=== PATIENT | female | born 1950 | race Caucasian/White ===

== ENCOUNTER 2024-12-15 13:05 | Outpatient (REF) | payer SELFPAY | END 2024-12-15 13:06 | disposition home or self-care (01) | LOC: HO.BBR 13:05 | PROVIDERS: Visit Provider Internal Medicine | DX: D45 Polycythemia vera (principal) | CPT/HCPCS: 85018; 99195 ==

== ENCOUNTER 2025-01-19 10:54 | Outpatient (REF) | payer MEDICARE, SELFPAY ==
--- OUTSIDE RECORDS SUMMARY | 2025-01-19 21:32 | XMS_ITS | Data Portability ---
Author Organization [place] [facility] [place] Address [address] [place] [address] Care Team Providers Care Network Communications Engineer Name Role Phone NINA WATTS Primary Care Provider NINA WATTS Primary Care Provider Assessment Encounter Date Assessment Date Assessment LastModified by Organization Details LastModified Time 01/29/2023 01/29/2023 Very pleasant 72-year-old female following up on right total hip arthroplasty by Dr. Dowell in 2014. Patient states she is doing well however she is a side sleeper and has pain on the outside of her right hip. Clinical findings suggestive of trochanteric bursitis of the right hip. She opted for a cortisone injection. After verbal consent was granted by the patient. The procedure was then carried out she tolerated this well. Aftercare instructions were discussed in detail. Follow-up visit in 6 weeks time for repeat clinical exam. Should her symptoms not improve or worsen she should contact my office. She agrees with this plan. We did discuss the current protocol regarding prophylactic antibiotics for which she can discontinue per Dr. Bunn's protocol. The caveat is if her dentist wishes to continue this they can take over management. Patient was seen and evaluated by Pavan Auguste PA-C in indirect conjuction with Documenting Provider: Linden Bunn MD . He/She agrees with history, physical examination, tests/diagnostic imaging, and treatment plan. Additional treatment plan discussed with the patient (only initiated if in boldface font) otherwise not applicable. Treatment may include the following; - Provider focused nonsteroidal anti-inflammator y regimen (discussed were the pros, cons, benefits and risks as well as any black box warnings) in patients over 60 years old they should be very cautious in taking these medications due to potential decreased kidney function and or elevated blood pressure. - Analgesic pain medication for pain suppression (discussed were the pros, cons, benefits and risks as well as any black box warnings) - The use of topical pain relieving medication were discussed - The use of ice to decrease inflammation and pain - The use of assistive ambulatory devices for ambulation and fall prevention - Formal specific guided physical therapy program I reviewed my findings at length with the patient today. We discussed the nature and etiology of this problem along with current treatment options. We discussed the expected course and outcomes and what to expect. We also discussed risks and benefits. All of their questions were answered today, and there was exhibited understanding and comprehension of all that was discussed. Time Spent: 10 minutes were spent reviewing previous imaging and charting. 10 minutes were spent obtaining patient history. 5 minutes were spent on physical exam. 5minutes were spent explaining diagnosis and assessment. Today's documentation was made using voice recognition software. This note may contain grammatical errors secondary to the software. Not available 01/29/2023 14:28:36 Plan of Treatment Reminders Order Date Submit Date Provider Last Modified By Organization Details Last Modified Time Details Appointments None recorded. Lab None recorded. Referral None recorded. Procedures None recorded. Surgeries None recorded. Imaging XR, hip, unilateral, 2 or 3 view 2022 023 [facility], [address], [address], [place], [address], 14:33:11 Medication Orders Kenalog 40 mg/mL suspension for injection 2022 023 Not available 14:33:11 lidocaine (PF) 10 mg/mL (1 %) injection solution 2022 023 Not available 14:33:11 Patient TargetsNo targets recorded. Patient Instructions Encounter Date Encounter Id Patient Instructions Last Modified By Organization Details Last Modified Time 01/29/2023 [id number] You have been provided with a cortisone injection in order to reduce the pain and inflammation that you are experiencing. The injection consists of two medications. Cortisone (an anti-inflammatory that will take 48-72 hours to take effect) and Lidocaine (a numbing agent that will last 2-3 hours). Please note that not everyone will have a lasting response following the injection. PATIENT INSTRUCTIONS Once the Lidocaine wears off, you may have an increase in your pain. I recommend icing the affected area for 20 minutes 3-4 times per day. It is recommended that you refrain from any high level activities using the joint or limb that was injected for approximately 24-48 hours. Normal day-to-day activities are generally not a problem. POSSIBLE SIDE EFFECTS Individuals with dark complexions may experience some skin discoloration locally at the site of the injection. There is the possibility of an increase in discomfort within 48 hours following the injection. This is called lashonda montero . To help minimize the chances of this, please see the post-injection instructions above. There is a less than 1% chance of an infection. If you notice any signs of infection (redness, warmth, drainage, fever greater than 100 degrees) please call our office or contact us through the portal CLA[facility]DE. Not available 01/29/2023 14:28:48 X-rays of the right hip reveal well-seated well-positioned total hip arthroplasty without sign of loosening. No acute bony abnormality. Not available 01/29/2023 14:25:38 Reason for Referral None Reported. Problems Name Problem SNOMED Code Status Onset Date Resolution Date Notes Provider Name and Address Organization Details Recorded Time History of total replaceme nt of right hip joint 68645803734 4100 Active 2016 History of total right hip arthropla sty Not Available [facility] 5 00:15:15 Stiffness of joint of right hip 37364558672 9102 Active 2017 Hip stiffness , right Not Available [facility] 5 00:15:14 Problem Notes None recorded. Procedures Surgical History Date Name Laterality Status Provider Name and Address Organization Details Recorded Time 3 JANNET Troch Bursa Inj completed PAVAN AUGUSTE PA-C [address] [place] [address],[address], [place], [address], [place] [facility] [place] [facility] 01/29/2023 14:26:45 ligation of fallopian tube completed Krissy Knott [place] [facility] [place] [facility] 01/29/2023 11:27:22 total replacement of left hip joint completed [facility] [place] [facility] [place] 01/29/2023 11:27:52 total replacement of right hip joint completed [facility] [place] [facility] [place] [facility] 01/29/2023 11:28:10 Imaging Results None recorded. Procedure Notes None recorded. Medical Equipment None Reported. Allergies No known drug allergies Medications Name Sig Start Date Stop Date Status Note LastModified by Organization Details LastModified Time atorvastati n 40 mg tablet TAKE 1 TABLET BY MOUTH EVERY DAY active Not Available Not Available No t Available atenolol 25 mg tablet 2016 active Not Available Not Available Not Avai lable amoxicillin 500 mg tablet Take 4 tabs 1 hour prior to dental appointme ntt 2021 active Not Available Not Available Not Avai lable Kenalog 40 mg/mL suspension for injection Take 1 mL by injection route. 2022 active Not Available Not Available Not Avai lable lisinopril 10 mg tablet TAKE 1 TABLET BY MOUTH EVERY MORNING active Not Available Not Available No t Available azelastine 137 mcg (0.1 %) nasal spray SPRAY 1 SPRAY INTO EACH NOSTRIL TWICE A DAY FOR 30 DAYS NEEDED FOR ALLERGIES active Not Available Not Available No t Available fluticasone propionate 50 mcg/actuati on nasal spray,suspe nsion SPRAY 1 SPRAY INTO EACH NOSTRIL TWICE A DAY active Not Available Not Available No t Available Flovent HFA 220 mcg/actuati on aerosol inhaler 2016 active Not Available Not Available Not Avai lable multivitami n active Not Available Not Available Not Available lidocaine (PF) 10 mg/mL (1 %) injection solution Take 2 mL by injection route. 2022 active Not Available Not Available Not Avai lable ProAir HFA 90 mcg/actuati on aerosol inhaler inhale 2 puffs by mouth four times a day if needed for shortness of breath 2016 active Not Available Not Available Not Avai lable GaviLyte-N 420 gram oral solution take by mouth as directed 2016 active Not Available Not Available Not Avai lable azelastine 205.5 mcg (0.15 %) nasal spray USE 1 SPRAY IN EACH NOSTRIL TWICE DAILY NEEDED FOR ALLERGY SYMPTOMS active Not Available Not Available No t Available Wixela Inhub 250 mcg-50 mcg/dose powder for inhalation INHALE 1 PUFF BY MOUTH TWICE A DAY FOR 30 DAYS. RINSE MOUTH AND THROAT AFTER USE active Not Available Not Available No t Available BinaxNOW COVID-19 Ag Self Test kit FOLLOW INSTRUCTI ONS BY MANUFA[employer] RS PACKAGE 01/29 completed Not Available Not Available Not Available Vitals Date Recorded Body height Body mass index (BMI) Body weight Provider Name and Address Organization Details Last Updated DateTime 01/29/2023 162.56 cm 29.9 kg/m2 [address] [facility] [place] [facility] [place], 01/29/2023 11:26:16 Social History None recorded. Functional Status Question Answer Note LastModified by Organizat ion Details LastModified Time How many times per week do you consume alcohol? 1-2 times per week Information not available 01/29/2023 Do you use any illicit or recreational drugs? No Information not available 01/29/2023 Do you or have you ever used any other forms of tobacco or nicotine? No Information not available 01/29/2023 What is your level of alcohol consumption? Occasional Information not available 01/29/2023 Mental Status None recorded. Family History Relationship Description Onset Age of this Age Resolved Age Notes LastModified by Organization Details LastModified Time Mother Family history of malignant neoplasm Not available 2022 11:27:06 Father Aneurysm Not available 01/29/2023 11:27:13 Medical History Condition Response Asthma Y Hypertension Y Gynecological HistoryNo gynecological history recorded. Obstetrics History GPAL:G 0 P 0 0 0 0 Past Encounters Encounter ID Performer Location Encounter Start Date Encounter Closed Date Diagnosis/Indication Diagnosis SNOMED-CT Code Diagnosis ICD10 Code Diagnosis IMO Codes Diagnosis Note [id number] [address] [facility] [address] [facility] [address] 01/29/2023 10:53:22 01/29/2023 11:52:51 History of total replacement of right hip joint [id number] 42194 Z96.641 Trochanter ic bursitis of right hip 0068184085 67193 M70.61 Health Concerns Section Related Observation LastModified by Organization Detai ls LastModified Time None Recorded Concern Status LastModified by Organization Details LastModified Time None Recorded Advance Directives Directive None Recorded Payers Insurance Date Sequence Insurance Name Policy Number Policy Browning Covered Member ID Browning Member ID Guarantor Name 01/28/2023 1 [facility] Milli Lakhani [id number] Milli Aguiarkajalnayeli Notes Date Note Type Note Provider Name and Address Organization Details Recorded Time 01/29/2023 text/html Very pleasant 72-year-old female following up on right total hip arthroplasty by Dr. Dowell in 2014. Patient states she is doing well however she is a side sleeper and has pain on the outside of her right hip. States she does her stretching exercises. No other complaints at this time. She had her left hip replaced at [facility] in 2012 no issues. X-rays of the right hip reveal well-seated well-positioned total hip arthroplasty without sign of loosening. No acute bony abnormality. PAVAN AUGUSTE PA-C [address] [place] [address],[place] [address], [place], [address], [place] [facility] [place] 01/29/2023 14:29:30 OBGyn Episode No OBEpisode recorded.
--- OUTSIDE RECORDS SUMMARY | 2025-01-19 21:32 | XMS_ITS | Clinical Summary ---
Author Organization [facility] Address [address] [place] [address] Phone Care Team Providers Care Salicylic Acid Blender Name Role Phone Pepito Gutiérrez DO Primary Care Provider Allergies No known active allergies Medications lisinopril (PRINIVIL,ZESTRI L) 20 MG tablet Take 20 mg by mouth every morning. 04/21/2022 Active fluticasone propion-salmeter oL (ADVAIR DISKUS) 250-50 mcg/dose DISKUS Inhale 1 puff into the lungs 2 (two) times a day. 05/17/2022 Active atorvastatin (LIPITOR) 40 MG tablet Take 40 mg by mouth daily. 03/09/2022 Active albuterol 90 mcg/actuation inhaler daily as needed. Active azelastine (ASTELIN) 137 mcg (0.1 %) nasal spray 2 sprays by Nasal route 2 (two) times a day. 05/17/2023 Active amLODIPine (NORVASC) 2.5 MG tablet Take 2.5 mg by mouth daily. Active Active Problems Problem Noted Date Diagnosed Date Thyroid nodule 05/28/2022 Overview (05/29/2023): s/p FNA x 2012, initial FLUS, 2nd inadequate, 3rd benign - reviewed with Dr. Ragland - michael anna, [facility] - stable u/s 2021 Assessment & Plan (05/28/2024 10:38 AM EDT): 74 yo woman w/ solitary thyroid nodule. s/p FNA x 3, 2012, initial FLUS, 2nd inadequate, 3rd benign - reviewed with Dr. Ragland - michael colloid, [facility]. Stable u/s 2021. Has been euthyroid. Has TSH included in labs for PCP. No compressive symptoms. Exam unrevealing. Ultrasound scheduled for this afternoon. To call if doesn't hear from me w/ results within 1-2 weeks. If stable, will likely monitor exam & defer further ultrasounds unless exam changes. Assessment & Plan (05/29/2023 10:58 AM EDT): Has been euthyroid. Will check labs when has upcoming labs for PCP. No compressive symptoms. Exam unrevealing. Ultrasound stable in 2021. Will repeat ultrasound prior to follow up. Assessment & Plan (05/28/2022 2:36 PM EDT): Has been euthyroid. Will check labs when has upcoming labs for PCP. No compressive symptoms. Exam unrevealing. Will repeat ultrasound at [facility] for comparison to previous. To contact me if hasn't heard @ results within 1-2 weeks. Family History Medical History Relation Comments Lupus Daughter Aneurysm Father COPD Mother Cancer Mother lung Thyroid disease Neg Hx Relation Status Comments Daughter Father Mother Social History Tobacco Use Types Packs/Day Years Used Date Smoking Tobacco: Never Smokeless Tobacco: Never Tobacco Cessation:Counseling Given: Not Answered Alcohol Use Standard Drinks/Week Comments Yes 0 (1 standard drink = 0.6 oz pur e alcohol) social Education Answer Date Recorded Are you interested in more education? Not on cain e 06/29/2022 Are you concerned about learning? Not on file 06/29/2022 No 06/29/2022 No 06/29/2022 Digital Access Answer Date Recorded No 07/30/2022 No 07/30/2022 Reliable internet access at home? Not on file 07/30/2022 Device with a working camera? Not on file Comments Unknown Sex and Gender Information Value Date Recorded Sex Assigned at Not on file Legal Sex Female 1:17 PM EDT Gender Identity Not on file Sexual Orientation Not on file Last Filed Vital Signs Vital Sign Reading Time Taken Comments Blood Pressure 142/82 05/28/2024 9:59 AM EDT Pulse 89 05/28/2024 9:59 AM EDT Temperature - - Respiratory Rate - - Oxygen Saturation 96% 05/28/2024 9:59 AM EDT Inhaled Oxygen Concentration - - Weight 77.7 kg (171 lb 3.2 oz) 05/28/2024 9:59 A M EDT Height 164.5 cm (5' 4.76 ) 05/28/2024 9:59 AM ED T Body Mass Index 28.7 05/28/2024 9:59 AM EDT Plan of Treatment Upcoming Encounters Date Type Department Care Team (Late st Contact Info) Description 05/18/2025 12:00 PM EDT Office Visit [facility] [address] [place] [id number] Janine Hawley MD [address] [place] [address] [email or web address] Health Maintenance Due Date Last Done Comments Adult Td,Tdap Booster 1949 CREATININE LEVEL 1949 LIPID PANEL 1949 POTASSIUM LEVEL 1949 DEPRESSION SCREENING 1961 HEPATITIS C SCREENING 1967 COLOGUARD 1994 COLONOSCOPY 1994 COLORECTAL CANCER SCREENING 1994 FIT TEST 1994 FOBT 1994 SIGMOIDOSCOPY 1994 VIRTUAL COLONOSCOPY 1994 OSTEOPOROSIS SCREENING INITIAL (ONE-TIME) 2014 RSV VACCINE (1 - 1-dose 75+ series) 2024 INFLUENZA VACCINE (#1) 2024 , 11/17/2019, 11/06/2017, Additional history exists COVID-19 VACCINE (2024- season) 2024 06/29/2021, 12/20/2020, 06/09/2020, Additional history exists PNEUMOCOCCAL VACCINES (50+ years) Completed 11/06/2017, 12/22/2014, 12/05/2010 ZOSTER VACCINES Completed 06/11/2021, 03/04, 02/29/2016 SMOKING STATUS SCREENING (Once After 26 Yrs) Completed 05/28/2024 HEPATITIS A VACCINES Aged Out No long er eligible based on patient's age to complete this topic HIB VACCINES Aged Out No longer eligi ble based on patient's age to complete this topic IPV VACCINES Aged Out No longer eligi ble based on patient's age to complete this topic MENINGOCOCCAL VACCINES (ACWY) Aged Out No longer eligible based on patient's age to complete this topic MENINGOCOCCAL VACCINES (B) Aged Out N o longer eligible based on patient's age to complete this topic Medical Devices Not on file Insurance [employer] Care Teams Salicylic Acid Blender Relationship Specialty Start Date End Date Pepito Gutiérrez DO [address] [facility] [place] [address] PCP - General Family Medicine 05/29/23 Additional Source Comments The information contained in this document represents components of the legal health record. It is not the complete legal health record.[facility]
--- OUTSIDE RECORDS SUMMARY | 2025-01-19 21:32 | XMS_ITS | Clinical Summary ---
Author Organization [facility] Address [address] [place] [phone] Phone Care Team Providers Care Grain Receiver Name Role Phone Raphael Membreno MD Primary Care Provider [phone] Allergies Active Allergy Reactions Criticality Noted Date Comments Adhesive Rash 10/28/2024 Medications atorvastatin (LIPITOR) 40 mg tablet Take 1 tablet (40 mg total) by mouth 1 (one) time each day. Active fluticasone propionate (FLONASE) 50 mcg/actuation nasal spray Administer 1 spray into each nostril 2 (two) times a day. 5 Active lisinopriL (PRINIVIL,ZESTR IL) 20 mg tablet Take 1 tablet (20 mg total) by mouth 1 (one) time each day. 5 Active fluticasone-breanna meterol (ADVAIR DISKUS) 250-50 mcg/dose diskus inhaler 2 (two) times a day. 1 Active albuterol HFA (ProAir HFA) 90 mcg/actuation inhaler inhale 2 puffs by mouth four times a day if needed for shortness of breath 7 Active Active Problems Problem Noted Date Diagnosed Date Benign essential hypertension 09/02/2024 Heart murmur 09/02/2024 HTN (hypertension) 09/02/2024 Thyroid nodule 05/28/2022 Overview (09/02/2024): s/p FNA x 3, 2013, initial FLUS, 2nd inadequate, 3rd benign - reviewed with Dr. Obie anna, BFCs - stable u/s 2021 Encounters Date Type Department Care Team Description 11/24/2024 10:15 AM EDT Office Visit [facility] Hematology Oncology [address] [place] [id number] Stephanie Licea DO Polycythemia vera (CMS/HCC V24, CMS/HCC V28) (Primary Dx); JAK2 gene mutation 10/28/2024 9:06 AM EDT - 10/28/2024 11:59 PM EDT Hospital Encounter [facility] Interventional Radiology [address] [place] [phone] Polycythemia Discharge Disposition: Home or Self Care 10/27/2024 Telephone [facility] Hematology Oncology [address] [place] [phone] Stephanie Licea DO from Last 3 Months Surgical History Surgery Date Site/Laterality Comments JOINT REPLACEMENT PROCEDURE:JOINT REPLACEMENT TUBAL LIGATION PROCEDURE:TUBAL LIGATION TONSILLECTOMY ADENOIDECTOMY, BILATERAL MYRINGOTOMY AND TUBES PROCEDURE:TONSILECTOMY, ADENOIDECTOMY, BILATERAL MYRINGOTOMY AND TUBES Medical History Medical History Date Comments Hypertension DX:Hypertension Anxiety DX:Anxiety Heart murmur DX:Heart murmur Asthma DX:Asthma Family History Medical History Relation Name Comments Cancer Mother Relation Name Status Comments Mother Social History Tobacco Use Types Packs/Day Years Used Date Smoking Tobacco: Never Tobacco Cessation:Counseling Given: Not Answered Alcohol Use Standard Drinks/Week Comments Yes 0 (1 standard drink = 0.6 oz pur e alcohol) Comments Unknown Sex and Gender Information Value Date Recorded Sex Assigned at Female 07/20/2024 5:04 PM EDT Legal Sex Female 6:44 PM EST Gender Identity Female 07/20/2024 5:04 PM EDT Sexual Orientation Straight 07/20/2024 5: 04 PM EDT Obstetrics History Last Filed Vital Signs Vital Sign Reading Time Taken Comments Blood Pressure 180/84 11/24/2024 10:50 AM EDT Pulse 90 11/24/2024 10:50 AM EDT Temperature 36.3 C (97.4 F) 11/24/2024 10:14 AM EDT Respiratory Rate 14 10/28/2024 9:47 AM EDT Oxygen Saturation 94% 11/24/2024 10:14 AM EDT Inhaled Oxygen Concentration - - Weight 78 kg (172 lb) 11/24/2024 10:14 AM EDT Height 166 cm (5' 5.35 ) 11/24/2024 10:14 AM EDT Body Mass Index 28.32 11/24/2024 10:14 AM EDT Plan of Treatment Upcoming Encounters Date Type Department Care Team (Late st Contact Info) Description 02/10/2025 10:00 AM EST Office Visit [facility] Hematology Oncology [address] [place] [phone] Stephanie Licea DO [address] [place] [address] Health Maintenance Due Date Last Done Comments Colorectal Cancer Screening: Colonoscopy 1950 DTaP,Tdap,and Td Vaccines (2 - Tdap) 12/05/2020 12/05/2010 Cholesterol Screening (Lipid Panel) 02/08/2022 Falls Risk Assessment 02/08/2022 Hepatitis C Screening 02/08/2022 Medicare Annual Wellness Visit 02/08/2022 Osteoporosis Screening (Bone Density Screening) 02/08/2022 Social Influencers of Health Screening 02/08/2022 Depression Screening 03/03/2024 Hypertension/CHF/CAD Annual BMP Blood Test 09/02/2024 COVID-19 Vaccine ( season) 2024 12/02/2023, 12/30/2022, 06/29/2021, Additional history exists Influenza Vaccine (#1) 2024 , 12/03/2022, 12/05/2021, Additional history exists Pneumococcal Vaccine: 50+ Years Completed 11/06/2017, 12/22/2014, 12/05/2010 Zoster Vaccines Completed 06/11/2021, 03/04, 02/29/2016 RSV Immunization Adult Patients Completed 01/14/2023 HIB Vaccines Aged Out No longer eligi ble based on patient's age to complete this topic HPV Vaccines Aged Out No longer eligi ble based on patient's age to complete this topic Hepatitis A Vaccines Aged Out No long er eligible based on patient's age to complete this topic Hepatitis B Vaccines Aged Out No long er eligible based on patient's age to complete this topic IPV Vaccines Aged Out No longer eligi ble based on patient's age to complete this topic MMR Vaccines Aged Out No longer eligi ble based on patient's age to complete this topic Meningococcal ACWY Vaccine Aged Out N o longer eligible based on patient's age to complete this topic Meningococcal B Vaccine Aged Out No l onger eligible based on patient's age to complete this topic RSV Immunization Patients Under 20 months Aged Out No longer eligible based on patient's age to complete this topic Varicella Vaccines Aged Out No longer eligible based on patient's age to complete this topic Procedures Procedure Name Priority Date/Time Associated Diagnosis Comments CBC WITH AUTO DIFFERENTIAL Routine 11/24/2024 10:55 AM EDT JAK2 gene mutation Polycythemia vera ([facility] V24, [facility] V28) CBC AND DIFFERENTIAL Routine 11/24/2024 10:55 AM EDT JAK2 gene mutation Polycythemia vera ([facility] V24, [facility] V28) BONE MARROW EXAM Routine 10/28/2024 11:0 2 AM EDT Polycythemia CYTOGENETICS MISCELLANEOUS Routine 10/28/2024 11:02 AM EDT Polycythemia FLOW CYTOMETRY Routine 10/28/2024 11:02 AM EDT Polycythemia IR BX AND ASP BONE MARROW Routine 10/28/2024 11:01 AM EDT Polycythemia from Last 3 Months Results * (ABNORMAL) CBC auto differential (11/24/2024 10:55 AM EDT) [facility] Signature WBC 8.3 4.8 - 10.8 K/mcL LAB HEMETOLOGY METHOD 11/24/2024 11:58 AM EDT [facility] RBC 5.50(H) 3.80 - 4.80 M/mcL LAB HEMETOLOGY METHOD 11/24/2024 11:58 AM [facility] Hemoglobin 17.5(H) 11.5 - 16.0 g/dL LAB HEMETOLOGY METHOD 11/24/2024 11:58 AM [facility] Hematocrit 51.8(H) 35.0 - 47.0 % LAB HEMETOLOGY METHOD 11/24/2024 11:58 AM [facility] MCV 94.4 79.0 - 98.0 FL LAB HEMETOLOGY METHOD 11/24/2024 11:58 AM [facility] MCH 31.9 27.0 - 32.0 pcg LAB HEMETOLOGY METHOD 11/24/2024 11:58 AM [facility] MCHC 33.8 32.0 - 37.0 g/dL LAB HEMETOLOGY METHOD 11/24/2024 11:58 AM [facility] RDW 14.5 11.0 - 15.0 % LAB HEMETOLOGY METHOD 11/24/2024 11:58 AM [facility] Platelets 324 130 - 400 K/mcL LAB HEMETOLOGY METHOD 11/24/2024 11:58 AM [facility] MPV 9.2 7.0 - 11.0 FL LAB HEMETOLOGY METHOD 11/24/2024 11:58 AM [facility] NRBC 0.0 <1.0 % LAB HEMETOLOGY METHOD 11/24/2024 11:58 AM [facility] NRBC Absolute 0.00 <0.10 K/mcL LAB HEMETOLOGY METHOD 11/24/2024 11:58 AM [facility] Neutrophils Relative 65.9 % LAB HEMETOLOGY METHOD 11/24/2024 11:58 AM [facility] Lymphocytes Relative 17.5 % LAB HEMETOLOGY METHOD 11/24/2024 11:58 AM EDT [facility] Monocytes Relative 10.6 % LAB HEMETOLOGY METHOD 11/24/2024 11:58 AM EDT [facility] Eosinophils Relative 4.9 % LAB HEMETOLOGY METHOD 11/24/2024 11:58 AM [facility] Basophils Relative 0.6 % LAB HEMETOLOGY METHOD 11/24/2024 11:58 AM EDT [facility] Immature Granulocytes Relative 0.5 % LAB HEMETOLOGY METHOD [facility] Neutrophils Absolute 5.50 1.50 - 7.00 K/mcL LAB HEMETOLOGY METHOD 11/24/2024 11:58 AM [facility] Lymphocytes Absolute 1.46 1.00 - 5.00 K/mcL LAB HEMETOLOGY METHOD 11/24/2024 11:58 AM [facility] Monocytes Absolute 0.88 0.20 - 1.00 K/mcL LAB HEMETOLOGY METHOD 11/24/2024 11:58 AM [facility] Eosinophils Absolute 0.41 0.00 - 0.50 K/mcL LAB HEMETOLOGY METHOD 11/24/2024 11:58 AM [facility] Basophils Absolute 0.05 0.00 - 0.20 K/mcL LAB HEMETOLOGY METHOD 11/24/2024 11:58 AM [facility] Immature Granulocytes Absolute 0.04(H) 0.00 - 0.03 K/mcL LAB HEMETOLOGY METHOD 11/24/2024 11:58 AM [facility] Blood Venous blood specimen / Unknown Venipuncture / Unknown 11/24/2024 10:55 AM EDT 11/24/2024 11:36 AM EDT us Stephanie Licea DO LAB BLOOD ORDERABLES Final Result [facility] ([facility]) [facility] [address] [place] [address], * Cytogentic Miscellaneous (10/28/2024 11:02 AM EDT) Scan Result See Scanned Result 11/08/2024 9:49 AM EDT EXTERNAL LAB (NON-INTERFAC ED) Bone Marrow Specimen from bone marrow obtained by aspiration / Unknown 10/28/2024 11:02 AM EDT 10/28/2024 11:18 AM EDT us Horace Vasquez MD LAB CYTOGENETICS ORDERABLES Dhara malcolm Result EXTERNAL LAB (NON-INTERFACED) * Flow cytometry (10/28/2024 11:02 AM EDT) Flow Cytometry Interpretation Bone marrow, Flow cytometry: - No monotypic B cell population identified. - Most of the lymphocytes are CD3-positive T cells including CD4-positive and CD8-positive subsets without diagnostic phenotypic aberrancy. - There is no increase in the proportion of [id number] blasts (0.4-0.5%). Note: No monotypic B cell population is identified. Most of the lymphocytes are T cells and NK cells without diagnostic phenotypic aberrancy. A small population of normal immature B-cell precursors (hematogones) is identified. The findings do not support a diagnosis of a lymphoproliferative disorder. HQ34-[id number] blasts do not appear increased. It is noted that a high proportion of the granulocytes shows expression of CD10, raising the possibility of a hemodilution. Correlation with the morphologic findings in the accompanying bone marrow biopsy and aspirate specimen is recommended. See separate report, [id number], for additional information. Please note that myeloid disorders cannot be reliably excluded by flow cytometry. SPECIMEN: Bone marrow ([id number]) VIABILITY: 91.7% TOTAL CELL YIELD: 16.1 x106/mL IMMUNOPHENOTYPIC FINDINGS: Lymphocytes are 14.2% of total. - T cells are 9.1% of total (62.8% of cells in lymphocyte gate) with no aberrant phenotype, CD4:CD8= 5.1. - B cells are 2.5% of total (17.5% of cells in lymphocyte gate) and are polytypic (kappa:lambda ratio = 1.5). The B cells show no significant expression of CD5, CD10, or CD38 and show no overexpression of CD200. - NK cells are 2.4% of total (17.2% of cells in lymphocyte gate) and show expression of CD56. Most of the NK cells (greater than 80%) showed pression of CD2, CD7, and CD16. - Plasma cells are 0.2 of total and are show weak expression of CD19 and CD45. - Granulocytes are 73.7% of total and show generally production inspector immunophenotypic maturation. A high proportion of the granulocytes shows expression of CD10, raising the possibility of hemodilution. - Monocytic cells are 7.1% of total and show generally production inspector immunophenotypic maturation. - CD45 dim cells are 2.3% of total. CD34+ blasts are not increased (approximately 0.4-0.5%). Antibodies (27 markers): CD2, CD3, CD4, CD5, CD7, CD8, CD10, CD11b, CD13, CD14, CD15, CD16, CD19, CD20, CD33, CD34, CD38, CD45, CD56, CD64, CD117, CD123, CD200, HLA-DR, Ackerly, Lambda, TCR??. 10/29/2024 12:[address] [facility] Disclaimer This test was developed and its performance characteristics determined by [facility]. It has not been cleared or approved by U.S. Food and Drug Administration. The FDA does not require this test to go through premarket FDA review. This test is used for clinical purposes. It should not be regarded as investigational or for research. This laboratory is certified under Clinical Laboratory Improvement Amendments of 1988 (CLIA) as qualified to perform high complexity clinical laboratory testing. 10/29/2024 12:[address] [facility] Bone Marrow Specimen from bone marrow obtained by aspiration / Unknown 10/28/2024 11:02 AM EDT 10/28/2024 11:18 AM EDT us Horace Vasquez MD LAB BLOOD ORDERABLES Final Resul t [facility] ([facility] [address] [place] [address], * Bone marrow exam (10/28/2024 11:02 AM EDT) Cytogenetics Report, Addendum This case was sent to [facility], [address] [place], [place], (CLIA #[id number]) for Cytogenetic studies. Their diagnosis is as follows: Cytogenetics Oncology Chromosome Analysis Karyotype: 46,XX[20] Interpretation: NORMAL FEMALE KARYOTYPE Cytogenetic analysis shows a normal female karyotype in all cells analyzed. Comments: Standard cytogenetic analysis may not detect subtle submicroscopic rearrangements and may not include metaphases from abnormal cell populations with low mitotic rates or present in low levels. Test Detail: Metaphases Counted: 20 Metaphases Analyzed: 20 Metaphases Karyotyped: 2 Culture Type: 24EB, 48EB Banding Technique: GTG Banding Resolution: 400 Electronic Signature Electronic Signature Abraham Gonzalez, Ph.D., [facility] - Effie Colon M.D., Hematopathologist - [facility] Lab Report Date: 11/05/2024 03:29:59 PM ET (See scanned copy for full report) 4:13 PM EDT [facility] Addendum electronically signed by Abraham Mejia MD on 11/05/2024 at 4:13 PM Final Diagnosis Bone Marrow, aspiration, core biopsy, and clot: - Normocellular to mildly hypercellular bone marrow for patient age (estimated at 40% overall cellularity in areas of intact bone marrow) with maturing myeloid and erythroid precursors, a normal myeloid:erythroid ratio, adequate numbers of megakaryocytes including abnormal hypersegmented and hyperchromatic forms and occasional small clusters of megakaryocytes, and 1.75% blasts in a 400-cell aspirate differential. (See note.) Note: This is a cellular bone marrow with trilineage hematopoiesis. Assessment of cellularity is difficult but based on intact areas of the bone marrow, the cellularity is estimated to be 40%. There is a normal myeloid:erythroid ratio (2.1:1). Reticulin staining shows a mild increase in reticulin-stained fibers (MF-1). Storage iron is present and pathologic ring sideroblasts are not identified. Immunophenotyping studies were performed. Flow cytometry shows no monotypic B-cell population and no aberrant T-cell population. No increase in the proportion of CD34 positive blast was identified. This is a patient with elevated hemoglobin (17.1 g/dL) and hematocrit (52.3%), and peripheral blood molecular studies showing the presence of a JAK2 V617F (reported as 37.3%). Megakaryocytes include abnormal hyperchromatic and hypersegmented forms, and there are small clusters of megakaryocytes identified. Although the combination of morphologic and molecular findings are compatible with a diagnosis of a myeloproliferative neoplasm, precise classification is difficult. The marrow in this specimen appears normocellular to mildly hypercellular, the M:E ratio is normal, and there is adequate storage iron. These morphologic features are not characteristic of polycythemia vera which is typically hypercellular, has an increase in erythroid precursors and often has absence of storage iron. However, given the high hemoglobin and hematocrit, this process may represent an early or prodromal form of polycythemia vera. Correlation with clinical and other laboratory findings is recommended. Karyotype is pending, addendum to follow. CBC (09/02/2024): WBC 7.8 k/uL, Hemoglobin 17.1 g/dL, Hematocrit 52.3%, MCV 95.6 fL, RDW 15.8%, Platelets 326 k/uL. Differential: Neutrophils: 65.3%, Lymphs: 17.5%, Monos: 9.9%, Eos: 5.9%, Basos: 0.9%, Immature granulocytes: 0.5%. Bone marrow aspirate smear (Boyce stain): Specimen quality: Adequate for evaluation with abundant cellular marrow particles and adequate staining properties. Myeloid:Erythroid ratio: 2.1 (normal) Myeloid maturation: A complete range of generally production inspector myeloid maturation is present. Eosinophils are focally increased. Few myeloid precursors show cytoplasmic vacuoles. Erythroid maturation: A complete range of generally production inspector erythroid maturation is present. Megakaryocyte number and morphology: Megakaryocytes are adequate in number. Occasional small, hypolobated megakaryocytes are present. Rare megakaryocytes exhibit emperipolesis. Iron stain: Adequate storage iron is present (3+/6). Pathologic ring sideroblasts are not identified. 400 cell Differential count of aspirate: 1.75% Blasts 0.25% Promyelocytes 13.5% Myelocytes/metamyeloc ytes 38.75% Neutrophils/bands 2.0% Monocytes 4.25% Eosinophils 0.0% Basophils 9.75% Lymphocytes 2.0% Plasma cells 27.25% Erythroid precursors Microscopic finding of bone marrow biopsy and clot (H&E, PAS and Reticulin): Specimen quality: -Core: Suboptimal (approximately 8-9 mm of intact marrow space); much of the marrow appears fragmented and crushed with artifactually empty areas. -Clot: Predominantly blood with scant marrow elements and a fragment of adipose tissue. Cellularity: Estimated at 40% in areas that are relatively intact (normocellular to mildly hypercellular for patient age). Myeloid maturation: Maturing myeloid elements are present. Erythroid maturation: Maturing erythroid elements are present. Megakaryocyte number and maturation: Scattered megakaryocytes are present including rare large megakaryocytes. Rare small clusters of three or more megakaryocytes and occasional megakaryocytes with increased nuclear:cytoplasmic ratio and hyperchromasia are noted. Plasma cells: Occasional plasma cells are identified; no expansile aggregates of plasma cells are seen. Lymphocytes: No discrete lymphoid aggregates are identified. Reticulin stain: Patchy increase in reticulin-stained fibers, including occasional thickened reticulin fibers (MF-1). Other findings: PAS Stain highlights megakaryocytes. Flow Cytometry (case [id number]) - No monotypic B cell population identified. - Most of the lymphocytes are CD3-positive T cells including CD4-positive and CD8-positive subsets without diagnostic phenotypic aberrancy. - There is no increase in the proportion of XB76-vwivqxuj blasts (0.4-0.5%). Note: No monotypic B cell population is identified. Most of the lymphocytes are T cells and NK cells without diagnostic phenotypic aberrancy. A small population of normal immature B-cell precursors (hematogones) is identified. The findings do not support a diagnosis of a lymphoproliferative disorder. LZ92-[id number] blasts do not appear increased. It is noted that a high proportion of the granulocytes shows expression of CD10, raising the possibility of a hemodilution. Please note that myeloid disorders cannot be reliably excluded by flow cytometry. SPECIMEN: Bone marrow VIABILITY: 91.7% TOTAL CELL YIELD: 16.1 x106/mL IMMUNOPHENOTYPIC FINDINGS: Lymphocytes are 14.2% of total. - T cells are 9.1% of total (62.8% of cells in lymphocyte gate) with no aberrant phenotype, CD4:CD8= 5.1. - B cells are 2.5% of total (17.5% of cells in lymphocyte gate) and are polytypic (kappa:lambda ratio = 1.5). The B cells show no significant expression of CD5, CD10, or CD38 and show no overexpression of CD200. - NK cells are 2.4% of total (17.2% of cells in lymphocyte gate) and show expression of CD56. Most of the NK cells (greater than 80%) showed pression of CD2, CD7, and CD16. - Plasma cells are 0.2 of total and are show weak expression of CD19 and CD45. - Granulocytes are 73.7% of total and show generally production inspector immunophenotypic maturation. A high proportion of the granulocytes shows expression of CD10, raising the possibility of hemodilution. - Monocytic cells are 7.1% of total and show generally production inspector immunophenotypic maturation. - CD45 dim cells are 2.3% of total. CD34+ blasts are not increased (approximately 0.4-0.5%). Antibodies (27 markers): CD2, CD3, CD4, CD5, CD7, CD8, CD10, CD11b, CD13, CD14, CD15, CD16, CD19, CD20, CD33, CD34, CD38, CD45, CD56, CD64, CD117, CD123, CD200, HLA-DR, Ackerly, Lambda, TCR??. This test was developed and its performance characteristics determined by [facility]. It has not been cleared or approved by U.S. Food and Drug Administration. The FDA does not require this test to go through premarket FDA review. This test is used for clinical purposes. It should not be regarded as investigational or for research. This laboratory is certified under the Clinical Laboratory Improvement Amendments of 1988 (CLIA) as qualified to perform high complexity clinical laboratory testing. Additional Testing (Addendum to follow): Conventional karyotype All special stains were performed with appropriate controls. 4:13 PM EDT [facility] Comment Intradepartmental consultants, Dr. Tori Chandler and Dr. Rossy Zhang ([facility] ([place], [place])). 4:13 PM EDT [facility] Gross Description A. Bone Marrow Aspirate, : Labeled with the patient's name and information are two green top tubes and two purple top tubes. Eight slides are prepared. One slide subsequently is stained for iron. Two slides are stained with Boyce's giemsa. One of the purple top tubes, containing 3 mL of bone marrow aspirate, is submitted in toto to [facility] in [place], [place], for flow cytometric studies. The remaining purple top tube and both green top tubes, containing 3 mL and 4 ml of bone marrow aspirate, respectively, are submitted to [facility], [place], [place], for cytogenetic studies. B. Bone Marrow Biopsy, : Labeled bone marrow biopsy . Received in formalin are two hard, cohn-red, core of bones, measuring 0.5 x 0.3 cm and 1.3 x 0.3 cm, and 0.4 cm of clotted blood. The specimen is submitted in toto as follows: 1, bone core following decalcification in [facility], one piece, x2 2, clot, multiple pieces, x2 WILL 4:13 PM EDT [facility] Disclaimer Unless otherwise specified, all tissue is 10% NB formalin fixed and paraffin embedded. NOTE: The immunohistochemical tests and in situ hybridization tests were developed and their performance characteristics were determined by [facility]. They have not been cleared or approved by the U.S. Food and Drug Administration. The FDA has determined that such clearance or approval is not necessary. These tests are used for clinical purposes. They should not be regarded as investigational or for research. This laboratory is certified under the Clinical Laboratory Improvement Amendments of 1988 (CLIA) as qualified to perform high complexity clinical laboratory testing. (controls appropriate) 4:13 PM EDT [facility] Bone Marrow Specimen from bone marrow obtained by aspiration / Unknown 10/28/2024 11:02 AM EDT 10/28/2024 11:17 AM EDT Bone marrow specimen (specimen) Specimen from bone marrow obtained by biopsy / Unknown 10/28/2024 11:02 AM EDT 10/28/2024 11:17 AM EDT Horace Vasquez MD LAB PATHOLOGY ORDERABLES Edited Result - Final [facility] ([facility]) [facility] [address] [place] [address], * IR Bx and Asp Bone Marrow (10/28/2024 11:01 AM EDT) Anatomical Region Laterality Modality Interventional R adiology 10/28/2024 11:2 4 AM EDT Impressions 10/28/2024 11:25 AM EDT Successful bone marrow aspiration/biopsy as described. -------- FINAL REPORT -------- Dictated By: Horace Vasquez Dictated Date: 10/28/2024 11:24 ET Assigned Physician: Horace Vasquez Reviewed and Electronically Signed By: Horace Vasquez Signed Date: 10/28/2024 11:25 ET Workstation ID: [id number] Transcribed By: Self Edit Transcribed Date: 10/28/2024 11:24 ET Narrative 10/28/2024 11:[address]-guided bone marrow biopsy. INDICATION: Pancytopenia. Interventionalist: Dr. Horace Vasquez Acuity: Chronic Laterality: Right PROCEDURE: Informed consent was obtained from the patient. The patient was placed in the CT scanner in prone position. Initial image was obtained through the bony pelvis with overlying skin markers. Appropriate access site was identified. Moderate sedation: Under direct physician supervision, the patient was moderately sedated with 75 mcg FENTANYL and one mg VERSED IV for a total of 17 minutes. An independent interventional radiology nurse observer trained in conscious sedation provided continuous physiologic monitoring of the patient during the entirety of the procedure through recovery. Local anesthesia was provided with 2% lidocaine. After making a small stab incision with a #11 blade scalpel, an 11-gauge needle was advanced to the posterior iliac crest. Additional lidocaine was provided at the level of the periosteum. The needle was advanced through the bony cortex and a heparinized marrow sample was obtained. A core sample was then obtained. The needle was removed. Hemostasis was achieved. The patient tolerated procedure with no immediate complications. Procedure Note Horace Vasquez MD - 10/28/2024 CT-guided bone marrow biopsy. INDICATION: Pancytopenia. Interventionalist: Dr. Horace Vasquez Acuity: Chronic Laterality: Right PROCEDURE: Informed consent was obtained from the patient. The patient was placed inthe CT scanner in prone position. Initial image was obtained through thebony pelvis with overlying skin markers. Appropriate access site wasidentified. Moderate sedation: Under direct physician supervision, the patient wasmoderately sedated with 75 mcg FENTANYL and one mg VERSED IV for a totalof 17 minutes. An independent interventional radiology nurse observertrained in conscious sedation provided continuous physiologic monitoringof the patient during the entirety of the procedure through recovery. Local anesthesia was provided with 2% lidocaine. After making a smallstab incision with a #11 blade scalpel, an 11-gauge needle was advanced tothe posterior iliac crest. Additional lidocaine was provided at the levelof the periosteum. The needle was advanced through the bony cortex and a heparinized marrowsample was obtained. A core sample was then obtained. The needle wasremoved. Hemostasis was achieved. The patient tolerated procedure withno immediate complications. IMPRESSION: Successful bone marrow aspiration/biopsy as described. -------- FINAL REPORT -------- Dictated By: Horace Vasquez Dictated Date: 10/28/2024 11:24 ET Assigned Physician: Horace Vasquez Reviewed and Electronically Signed By: Horace Vasquez Signed Date: 10/28/2024 11:25 ET Workstation ID: [id number] Transcribed By: Self Edit Transcribed Date: 10/28/2024 11:24 ET us Stephanie Licea DO IMG IR PROCEDURES Fin al Result from Last 3 Months Insurance [employer] Care Teams Grain Receiver Relationship Specialty Start Date End Date Raphael Membreno MD [address] [place] [address] PCP - General Internal Medicine 10/27/24
--- OUTSIDE RECORDS SUMMARY | 2025-01-19 21:32 | XMS_ITS | Clinical Summary ---
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 Name Role Phone Loraine Wakefield MD Primary Care Provider [phone] Allergies No known active allergies Medications Medication Sig Dispensed Refills Start Date End Date Status GAVILYTE-N WITH FLAVOR PACK 420 G solution take by mouth as directed 0 08/14/2016 Active FLOVENT HFA 220 MCG/ACT inhaler 1 08/29/2016 Active azelastine (ASTELIN) 0.1 % nasal spray 0 10/14/2016 Active atorvastatin (LIPITOR) tablet 40 mg 0 10/08/2016 Active atenolol (TENORMIN) tablet 25 mg 0 10/08/2016 Active PROAIR HFA 108 (90 BASE) MCG/ACT inhaler inhale 2 puffs by mouth four times a day if needed for shortness of breath 1 10/07/2016 Active lisinopril (PRINIVIL,ZESTRIL) tablet 10 mg 0 09/18/2018 Active QVAR REDIHALER 80 MCG/ACT inhaler 1 puff 2 (two) times a day. 1 08/14/2018 Active fluticasone-salmete rol (ADVAIR) 250-50 MCG/DOSE DISKUS 2 (two) times a day. 0 12/03/2020 Active amoxicillin (AMOXIL) 500 MG tablet Take 4 tabs 1 hour prior to dental appointment t 20 tablet 3 01/01/2022 Active Active Problems Problem Noted Date Diagnosed Date Hip stiffness, right 11/11/2017 History of total right hip arthroplasty 10/19/19 17 Family History Medical History Relation Name Comments Cancer Mother Relation Name Status Comments Mother Social History Tobacco Use Types Packs/Day Years Used Date Smoking Tobacco: Never Assessed Sex and Gender Information Value Date Recorded Sex Assigned at Not on file Gender Identity Not on file Sexual Orientation Not on file Job Start Date Occupation Industry Not on file Not on file Not on file Last Filed Vital Signs Vital Sign Reading Time Taken Comments Blood Pressure - - Pulse - - Temperature - - Respiratory Rate - - Oxygen Saturation - - Inhaled Oxygen Concentration - - Weight 80.7 kg (178 lb) 11/12/2018 8:59 AM EDT Height 165.1 cm (5' 5 ) 11/12/2018 8:59 AM EDT Body Mass Index 29.62 11/12/2018 8:59 AM EDT Plan of Treatment Health Maintenance Due Date Last Done Comments Hepatitis C Screening 1949 Depression Screening 1961 Preventative Health Evaluation 1967 DTap / Tdap / Td (1 - Tdap) 1968 Colon Cancer Screening (Colonoscopy) 1994 Fall Risk Assessment 2014 Osteoporosis Screening (DEXA Scan) 2014 RSV Adult > 60+ Yrs or (1 - 1-dose 75+ series) 2024 COVID-19 Vaccine ( season) 2024 06/29/2021, 12/20/2020, 06/09/2020, Additional history exists Influenza Vaccine (#1) 2024 , 11/17/2019, 11/06/2017, Additional history exists Pneumococcal Vaccine Completed 11/06/2017, 12/22/2014, 12/05/2010 Shingrix-Zoster Vaccine Completed 06/11/2021, 03/30 Hepatitis B Vaccines Aged Out No long er eligible based on patient's age to complete this topic RSV Ped < 20 months Aged Out No longe r eligible based on patient's age to complete this topic Care Teams 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
--- OUTSIDE RECORDS SUMMARY | 2025-01-19 21:32 | XMS_ITS | Data Portability ---
Author Organization [place] [facility], Allergy Address [address] [address] Care Team Providers Care Operational Intelligence Officer Name Role Phone SAEED OCHOA Primary Care Provider Assessment Encounter Date Assessment Date Assessment LastModified by Organization Details LastModified Time 03/10/2024 03/10/2024 Patient was concerned about gravelly voice quality. She feels the onset was around 6 months ago. She has been experiencing chronic postnasal drip that has not resolved with topical nasal medications of azelastine and Flonase. She feels decreased airflow through the right side of her nose as well. Her examination confirms a right sided septal deviation. Fiberoptic laryngoscopy was then performed showing glottic gap consistent with presbylaryngeus . This would be age-related changes. Offered referral to speech therapy which she declined at this time. Incidental finding during the fiberoptic laryngoscopy of left-sided middle meatus purulence consistent with acute sinusitis. A 7-day course of Augmentin was offered. This may better explain her chronic postnasal drip dplosky Not available 03/10/2024 11:44:46 Plan of Treatment Reminders Order Date Submit Date Provider Last Modified By Organization Details Last Modified Time Details Appointments None recorded. Lab None recorded. Referral None recorded. Procedures None recorded. Surgeries None recorded. Imaging None recorded. Medication Orders amoxicillin 875 mg-potassiu m clavulanate [address] [facility] #[id number], [address] [facility], [place], [address], 11:41:06 Patient TargetsNo targets recorded. Patient InstructionsNo instructions recorded. Reason for Referral None Reported. Problems Name Problem SNOMED Code Status Onset Date Resolution Date Notes Provider Name and Address Organization Details Recorded Time Acute maxillary sinusitis 62969875 Active 2024 AURELIANO CHOUDHURY MD [address] [facility],[place] [address], [place], [phone], [facility] - [facility] 11:40:28 Deviated nasal septum 019187406 Active 2024 AURELIANO CHOUDHURY MD [address] [address], [place], [phone], [facility] [place] 11:40:32 Chronic hoarseness 7609757686069 Active 2024 AURELIANO CHOUDHURY MD [address] [place] [address], [place], [phone], [facility] - [facility] 11:40:38 Problem Notes None recorded. Procedures Surgical History Date Name Laterality Status Provider Name and Address Organization Details Recorded Time 03/10/2024 FOL_DP completed AURELIANO CHOUDHURY MD [address] [place] [address], [place], [phone], [facility] 03/10/2024 11:40:21 Imaging Results None recorded. Procedure Notes None recorded. Medical Equipment None Reported. Allergies No known drug allergies Medications Name Sig Start Date Stop Date Status Note LastModified by Organization Details LastModified Time atorvastati n 40 mg tablet TAKE 1 TABLET BY MOUTH EVERY DAY active Not Available Not Available No t Available azithromyci n 250 mg tablet TAKE 2 TABLETS BY MOUTH TODAY, THEN TAKE 1 TABLET DAILY FOR 4 DAYS DIRECTED 03/10 completed Not Available Not Available Not Available lisinopril 20 mg tablet TAKE 1 TABLET BY MOUTH EVERY DAY 03/10 completed Not Available Not Available Not Available amlodipine 2.5 mg tablet TAKE 1 TABLET BY MOUTH EVERY DAY active Not Available Not Available No t Available lisinopril 10 mg tablet TAKE 1 TABLET BY MOUTH EVERY MORNING active Not Available Not Available No t Available azelastine 137 mcg (0.1 %) nasal spray SPRAY 1 SPRAY INTO EACH NOSTRIL TWICE A DAY FOR 30 DAYS NEEDED FOR ALLERGIES active Not Available Not Available No t Available fluticasone propionate 50 mcg/actuati on nasal spray,suspe nsion USE 1 SPRAY INTO EACH NOSTRIL TWICE A DAY active Not Available Not Available No t Available amoxicillin 875 mg-potwandau m clavulanate 125 mg tablet Take 1 tablet every 12 hours by oral route for 7 days, for sinusitis . 2024 active Not Available Not Available Not Avai lable Wixela Inhub 250 mcg-50 mcg/dose powder for inhalation INHALE 1 PUFF BY MOUTH 2 TIMES A DAY FOR 30 DAYS, RINSE MOUTH AND THROAT AFTER USE active Not Available Not Available No t Available Vitals Date Recorded Body height Body mass index (BMI) Body weight Provider Name and Address Organization Details Last Updated DateTime 03/10/2024 165.1 cm 28.8 kg/m2 65166.48 g Desiree Sykes [place] - [facility] 03/10/2024 11:06:11 Social History None recorded. Functional Status None recorded. Mental Status None recorded. Family History Nothing Reported. Medical History No medical history recorded. Gynecological HistoryNo gynecological history recorded. Obstetrics History GPAL:G 0 P 0 0 0 0 Past Encounters Encounter ID Performer Location Encounter Start Date Encounter Closed Date Diagnosis/Indication Diagnosis SNOMED-CT Code Diagnosis ICD10 Code Diagnosis IMO Codes Diagnosis Note [id number] AURELIANO CHOUDHURY MD [facility] [address] [phone] 03/10/2024 10:27:54 03/10/2024 11:43:50 Acute maxillary sinusitis 17685320 J01.00 Deviated nasal septum 12 1938390 J34.2 Chronic hoarseness 37926 09494 105 R49.0 Health Concerns Section Related Observation LastModified by Organization Detai ls LastModified Time None Recorded Concern Status LastModified by Organization Details LastModified Time None Recorded Advance Directives Directive None Recorded Payers Insurance Date Sequence Insurance Name Policy Number Policy Browning Covered Member ID Browning Member ID Guarantor Name 03/23/2024 1 [facility] - MEDICARE PREFERRED (MEDICARE REPLACEMENT HMO) [id number] Milli Lakhani [id number] Milli Lakhani 03/10/2024 1 MEDICARE B-CT: [employer] Milli Brittonicz [id number] Milli Lara Lesvia Notes Date Note Type Note Provider Name and Address Organization Details Recorded Time 03/10/2024 text/html ROS as noted in the HPI gravely voiceonset 11/2023likes to sing around housenot a high vocal user in generalno prior throat surgery beyond tonsilsthyroid nodule followed w observationno dysphagia, hemoptysisrare heartburn Met with Dr oClon, told has a deviated septumazelastine and fluticasone by pulm helps sxfeels some PND and gravely voiceno prior nose surgery or traumaright side of nose is hard to breath through AURELIANO CHOUDHURY MD [address] [place] [address], [place], [address], [place] [facility] 03/10/2024 11:45:09 OBGyn Episode No OBEpisode recorded.
== END 2025-01-19 10:55 | disposition home or self-care (01) ==
LOC: HO.BBR 10:54
PROVIDERS: Visit Provider Internal Medicine
DX: D45 Polycythemia vera (principal)
CPT/HCPCS: 85018; 99195